=== PATIENT | female | born 1940 | race Caucasian/White ===

== ENCOUNTER 2018-08-17 10:05 | Inpatient (IN) ==
--- NOTE | 2018-08-17 10:36 | ED ---
HPI General Chief complaint: Arrhythmia / Palpitations Stated complaint: Cardiac complaint x 1 day Time Seen by Provider: 08/17/18 10:23 Source: patient Mode of arrival: ambulatory Limitations: no limitations History of Present Illness HPI narrative: 78yo F with PMH of afib (on eliquis, sotalol and dilitazem PRN), CHF here with c/o rapid heart rate since yesterday. Said she took her diltiazem yesterday but it didnt help. Did feel a little sob today. +Nausea. Denies any fever, chest pain, vomiting, abdominal pain, focal weakness or numbness. Related Data Home Medications Medication Instructions Recorded Confirmed apixaban [Eliquis] 2.5 mg PO BID 08/17/18 08/17/18 cholecalciferol (vitamin D3) 08/17/18 [Vitamin D3] colesevelam [WelChol] 1,875 mg PO BID 08/17/18 08/17/18 diltiazem HCl 90 mg PO DIRECTED 08/17/18 08/17/18 esomeprazole magnesium [Nexium] 40 mg PO DAILY 08/17/18 08/17/18 folic acid 2 mg PO DAILY 08/17/18 08/17/18 gabapentin 300 mg PO TID 08/17/18 08/17/18 glipizide 10 mg PO BID 08/17/18 08/17/18 mag [id number] rt xt 08/17/18 nebivolol [Bystolic] 10 mg PO DAILY 08/17/18 08/17/18 potassium chloride 20 meq PO QID 08/17/18 08/17/18 sitagliptin [Januvia] 100 mg PO DAILY 08/17/18 08/17/18 sotalol 120 mg PO BID 08/17/18 08/17/18 torsemide 20 mg PO TID 08/17/18 08/17/18 vitamins A,C,L-fzwi-hrnfdo 08/17/18 [PreserVision AREDS] Allergies Allergy/AdvReac Type Severity Reaction Status Date / Time epinephrine Allergy Severe Hives Verified 08/17/18 10:10 iodine Allergy Severe Hives Verified 08/17/18 10:10 shellfish derived Allergy Severe Hives Verified 08/17/18 10:10 Sulfa (Sulfonamide Allergy Severe Hives Verified 08/17/18 10:10 Antibiotics) morphine AdvReac Severe Hives Verified 08/17/18 10:10 Review of Systems ROS: all other systems reviewed are negative [facility] Medical History Medical History History of atrial fibrillation (Acute) History of macular degeneration (Acute) Hx of diabetes mellitus (Acute) Hx of hysterectomy (Acute) Surgical History Surgical History History of back surgery (Acute) History of bilateral knee replacement (Acute) Hx laparoscopic cholecystectomy (Acute) Hx of appendectomy (Acute) Hx of cataract extraction (Acute) Hx of tonsillectomy (Acute) Social History Social History Substance History: No History of Abuse Second Hand Smoke Exposure: No Smoking Status: Former smoker Tobacco Type: Cigarettes How Often Do You Have a Drink Containing Alcohol: 2 to 4 times a month Recent Travel in [facility] within the Last 8 Weeks: No Recent Out of Country Travel within the Last 8 Weeks: No Exam Narrative Exam Narrative: GENERAL: 78yo F in mild distress. SKIN: Focused skin assessment warm/dry. HEAD: Atraumatic. Normocephalic. EYES: Pupils equal and round. No scleral icterus. No injection or drainage. ENT: No nasal bleeding or discharge. Mucous membranes pink and moist. NECK: Trachea midline. No JVD. CARDIOVASCULAR: Regular rate and rhythm. No murmur appreciated. RESPIRATORY: No accessory muscle use. Clear to auscultation. Breath sounds equal bilaterally. GASTROINTESTINAL: Abdomen soft, non-tender, nondistended. MUSCULOSKELETAL: No obvious deformities. No clubbing. No cyanosis. +Bilateral lower extremity edema. NEUROLOGICAL: Awake and alert. No obvious cranial nerve deficits. Motor grossly within normal limits. Normal speech. PSYCHIATRIC: Appropriate mood and affect; insight and judgment normal. Course Initial Documented Vital Signs Temperature 97.6 F 08/17/18 10:18 Pulse Rate 120 H 08/17/18 10:18 Respiratory Rate 16 08/17/18 10:18 Blood Pressure 152/87 H 08/17/18 10:18 Pulse Oximetry 93 L 08/17/18 10:18 Last Documented Vital Signs Temperature 97.0 F L 08/18/18 12:00 Pulse Rate 60 08/18/18 12:00 Respiratory Rate 21 08/18/18 12:00 Blood Pressure 129/60 08/18/18 12:00 Pulse Oximetry 95 08/18/18 12:00 Critical Care Time Critical Care Time: Yes Total Critical Care Time: 40 Attestation: Aggregate critical care time was 40 minutes. Time to perform other separately billable procedures was not included in the critical care time. My time did not include minutes spent treating any other patients simultaneously or on activities that did not directly contribute to the patient's treatment. The services I provided to this patient were to treat and/or prevent clinically significant deterioration that could result in: Cardiovascular collapse or . I provided critical care services requiring my management, as noted below: Chart data review, documentation time, medication orders and management, vital sign assessments/reviewing monitor data, ordering and reviewing lab tests, ordering and interpreting/reviewing x-rays and diagnostic studies, care of the patient and discussion of the patient with the admitting physicians. Medical Decision Making MDM Narrative Medical decision making narrative: 78yo F here with afib RVR in the 120s. Pt also sob and O2 sat was 93% on RA so placed on 2L NC. Labs reviewed, no leukocytosis. H/H normal. BUN mildly elevated at 26. Troponin negative. BNP elevated at 491. CXR showed cardiomegaly with mild congestive failure. HR has been in the 80s since the IV cardizem so will give her usual dose of PO cardizem since she has not taken it today. I took pt off the oxygen and O2 sat drops to 89% on RA so placed her back to 2L NC where she is saturating at 96%. She does not use oxygen at home just CPAP at night for sleep. She takes torsemide and has normal creatinine so ordered 40mg IV lasix. Discussed with Dr. Sarabia and accepted to his service. Medical Screen Exam Complete: Yes Emergency Medical Condition: Yes Differential Diagnosis Differential Diagnosis: Afib RVR vs. CHF exacerbation vs. pneumonia vs. ACS Lab Data Result diagrams: 08/18/18 05:03 08/18/18 05:03 Lab Results 08/17/18 08/17/18 08/17/18 Range/Units 10:40 10:40 10:40 CBC w Diff Auto diff final WBC 7.2 (4.0-11.0) th/mm3 RBC 4.74 (4.00-5.30) mil/mm3 Hgb 14.3 (11.6-15.3) gm/dL Hct 43.2 (35.0-46.0) % MCV 91.2 (80.0-100.0) fL MCH 30.1 (27.0-34.0) pg MCHC 33.0 (32.0-36.0) % RDW 13.8 (11.6-17.2) % Plt Count 191 (150-450) th/mm3 MPV 9.4 (7.0-11.0) fL Neut % (Auto) 54.1 (16.0-70.0) % Lymph % (Auto) 32.1 (9.0-44.0) % [place] % (Auto) 9.8 H (0.0-8.0) % Eos % (Auto) 3.1 (0.0-4.0) % Baso % (Auto) 0.9 (0.0-2.0) % Neut # (Auto) 3.9 (1.8-7.7) th/mm3 Lymph # (Auto) 2.3 (1.0-4.8) th/mm3 [place] # (Auto) 0.7 (0.0-0.9) th/mm3 Eos # (Auto) 0.2 (0.0-0.4) th/mm3 Baso # (Auto) 0.1 (0.0-0.2) th/mm3 WBC Differential . Differential Comment . PT (9.8-11.6) sec INR Ratio APTT (23.4-31.7) sec Sodium 138 (136-145) meq/L Potassium 4.1 (3.5-5.1) meq/L Chloride 105 (98-107) meq/L Carbon Dioxide 29.0 (21.0-32.0) meq/L Anion Gap 4 L (5-15) meq/L BUN 26 H (7-18) mg/dL Creatinine 1.00 (0.50-1.00) mg/dL Estimated GFR 54 L (>89) mL/min POC Glucose (68-110) mg/dl Random Glucose 170 H (74-106) mg/dL Calcium 9.0 (8.5-10.1) mg/dL Total Bilirubin (0.2-1.0) mg/dL AST (15-37) U/L ALT (10-53) U/L Alkaline Phosphatase (45-117) U/L Total Creatine Kinase (26-192) U/L Troponin I Less than 0.02 L (0.02-0.05) ng/mL B-Natriuretic Peptide 491 H (0-100) pg/mL Total Protein (6.4-8.2) g/dL Albumin (3.4-5.0) g/dL 08/17/18 08/17/18 08/17/18 Range/Units 10:40 16:38 20:36 CBC w Diff WBC (4.0-11.0) th/mm3 RBC (4.00-5.30) mil/mm3 Hgb (11.6-15.3) gm/dL Hct (35.0-46.0) % MCV (80.0-100.0) fL MCH (27.0-34.0) pg MCHC (32.0-36.0) % RDW (11.6-17.2) % Plt Count (150-450) th/mm3 MPV (7.0-11.0) fL Neut % (Auto) (16.0-70.0) % Lymph % (Auto) (9.0-44.0) % [place] % (Auto) (0.0-8.0) % Eos % (Auto) (0.0-4.0) % Baso % (Auto) (0.0-2.0) % Neut # (Auto) (1.8-7.7) th/mm3 Lymph # (Auto) (1.0-4.8) th/mm3 [place] # (Auto) (0.0-0.9) th/mm3 Eos # (Auto) (0.0-0.4) th/mm3 Baso # (Auto) (0.0-0.2) th/mm3 WBC Differential Differential Comment PT 10.4 (9.8-11.6) sec INR 1.0 Ratio APTT 26.5 (23.4-31.7) sec Sodium (136-145) meq/L Potassium (3.5-5.1) meq/L Chloride (98-107) meq/L Carbon Dioxide (21.0-32.0) meq/L Anion Gap (5-15) meq/L BUN (7-18) mg/dL Creatinine (0.50-1.00) mg/dL Estimated GFR (>89) mL/min POC Glucose 119 (68-110) mg/dl Random Glucose (74-106) mg/dL Calcium (8.5-10.1) mg/dL Total Bilirubin (0.2-1.0) mg/dL AST (15-37) U/L ALT (10-53) U/L Alkaline Phosphatase (45-117) U/L Total Creatine Kinase 53 (26-192) U/L Troponin I Less than 0.02 L (0.02-0.05) ng/mL B-Natriuretic Peptide (0-100) pg/mL Total Protein (6.4-8.2) g/dL Albumin (3.4-5.0) g/dL 08/18/18 08/18/18 08/18/18 Range/Units 05:03 05:03 05:03 CBC w Diff Auto diff final WBC 7.8 (4.0-11.0) th/mm3 RBC 4.42 (4.00-5.30) mil/mm3 Hgb 13.4 (11.6-15.3) gm/dL Hct 40.6 (35.0-46.0) % MCV 91.9 (80.0-100.0) fL MCH 30.2 (27.0-34.0) pg MCHC 32.9 (32.0-36.0) % RDW 13.7 (11.6-17.2) % Plt Count 163 (150-450) th/mm3 MPV 9.9 (7.0-11.0) fL Neut % (Auto) 49.6 (16.0-70.0) % Lymph % (Auto) 35.0 (9.0-44.0) % [place] % (Auto) 12.1 H (0.0-8.0) % Eos % (Auto) 2.7 (0.0-4.0) % Baso % (Auto) 0.6 (0.0-2.0) % Neut # (Auto) 4.0 (1.8-7.7) th/mm3 Lymph # (Auto) 2.7 (1.0-4.8) th/mm3 [place] # (Auto) 0.9 (0.0-0.9) th/mm3 Eos # (Auto) 0.2 (0.0-0.4) th/mm3 Baso # (Auto) 0.0 (0.0-0.2) th/mm3 WBC Differential . Differential Comment . PT (9.8-11.6) sec INR Ratio APTT (23.4-31.7) sec Sodium 140 (136-145) meq/L Potassium 4.3 (3.5-5.1) meq/L Chloride 105 (98-107) meq/L Carbon Dioxide 31.5 (21.0-32.0) meq/L Anion Gap 4 L (5-15) meq/L BUN 26 H (7-18) mg/dL Creatinine 1.00 (0.50-1.00) mg/dL Estimated GFR 54 L (>89) mL/min POC Glucose (68-110) mg/dl Random Glucose 122 H (74-106) mg/dL Calcium 9.2 (8.5-10.1) mg/dL Total Bilirubin 0.6 (0.2-1.0) mg/dL AST 19 (15-37) U/L ALT 28 (10-53) U/L Alkaline Phosphatase 98 (45-117) U/L Total Creatine Kinase (26-192) U/L Troponin I (0.02-0.05) ng/mL B-Natriuretic Peptide 248 H (0-100) pg/mL Total Protein 7.3 (6.4-8.2) g/dL Albumin 3.5 (3.4-5.0) g/dL 08/18/18 08/18/18 Range/Units 07:37 10:51 CBC w Diff WBC (4.0-11.0) th/mm3 RBC (4.00-5.30) mil/mm3 Hgb (11.6-15.3) gm/dL Hct (35.0-46.0) % MCV (80.0-100.0) fL MCH (27.0-34.0) pg MCHC (32.0-36.0) % RDW (11.6-17.2) % Plt Count (150-450) th/mm3 MPV (7.0-11.0) fL Neut % (Auto) (16.0-70.0) % Lymph % (Auto) (9.0-44.0) % [place] % (Auto) (0.0-8.0) % Eos % (Auto) (0.0-4.0) % Baso % (Auto) (0.0-2.0) % Neut # (Auto) (1.8-7.7) th/mm3 Lymph # (Auto) (1.0-4.8) th/mm3 [place] # (Auto) (0.0-0.9) th/mm3 Eos # (Auto) (0.0-0.4) th/mm3 Baso # (Auto) (0.0-0.2) th/mm3 WBC Differential Differential Comment PT (9.8-11.6) sec INR Ratio APTT (23.4-31.7) sec Sodium (136-145) meq/L Potassium (3.5-5.1) meq/L Chloride (98-107) meq/L Carbon Dioxide (21.0-32.0) meq/L Anion Gap (5-15) meq/L BUN (7-18) mg/dL Creatinine (0.50-1.00) mg/dL Estimated GFR (>89) mL/min POC Glucose 153 133 (68-110) mg/dl Random Glucose (74-106) mg/dL Calcium (8.5-10.1) mg/dL Total Bilirubin (0.2-1.0) mg/dL AST (15-37) U/L ALT (10-53) U/L Alkaline Phosphatase (45-117) U/L Total Creatine Kinase (26-192) U/L Troponin I (0.02-0.05) ng/mL B-Natriuretic Peptide (0-100) pg/mL Total Protein (6.4-8.2) g/dL Albumin (3.4-5.0) g/dL Imaging Data Radiologist's impression: Chest X-Ray 08/17/18 10:31 CONCLUSION: Cardiomegaly with mild congestive failure ECG Data EKG Prior to Arrival: No Attestation: I personally reviewed and interpreted this ECG as follows: Interpretation: Afib at 117bpm. Normal axis. No significant ST elevation or depression. Discharge Plan Discharge Disposition Patient Disposition: ED Admit(ED Internal Use Only) Discharge Order Discharge Orders: Discharge Order (Routine); Ordered 08/18/18 Ordered By: Omer Sarabia ED Use Only Admit Order (Routine); Ordered 08/17/18 Ordered By: Kavita Darnell Discharge Details Diagnosis: CHF exacerbation Physicians Team ED Provider: Kavita Darnell Attending Provider: Omer Sarabia Status ED Status: Left Department Discharge Information Discharge Date/Time: 08/17/18 13:25
[2018-08-17 10:51] LABS: Baso # (Auto) 0.1 th/mm3 (0.0-0.2); Baso % (Auto) 0.9 % (0.0-2.0); Eos # (Auto) 0.2 th/mm3 (0.0-0.4); Eos % (Auto) 3.1 % (0.0-4.0); Hematocrit 43.2 % (35.0-46.0); Hemoglobin 14.3 gm/dL (11.6-15.3); Lymph # (Auto) 2.3 th/mm3 (1.0-4.8); Lymph % (Auto) 32.1 % (9.0-44.0); Mean Corpuscular Hemoglobin 30.1 pg (27.0-34.0); Mean Corpuscular Volume 91.2 fL (80.0-100.0); Mean Platelet Volume 9.4 fL (7.0-11.0); Mono # (Auto) 0.7 th/mm3 (0.0-0.9); Mono % (Auto) 9.8 % (0.0-8.0); Neut # (Auto) 3.9 th/mm3 (1.8-7.7); Neut % (Auto) 54.1 % (16.0-70.0); Platelet Count 191 th/mm3 (150-450); Red Blood Count 4.74 mil/mm3 (4.00-5.30); Red Cell Distribution Width 13.8 % (11.6-17.2); White Blood Count 7.2 th/mm3 (4.0-11.0)
[2018-08-17 11:03] LABS: Chloride 105 meq/L (98-107); Potassium 4.1 meq/L (3.5-5.1); Sodium 138 meq/L (136-145)
[2018-08-17 11:06] LABS: Anion Gap 4 meq/L (5-15); Blood Urea Nitrogen 26 mg/dL (7-18); Glucose,Random 170 mg/dL (74-106)
[2018-08-17 11:08] LABS: Activated Partial Thrombo Time 26.5 sec (23.4-31.7); Prothrombin Time 10.4 sec (9.8-11.6)
[2018-08-17 11:09] LABS: Glomerular Filtration Rate 54 mL/min (>89)
--- NOTE | 2018-08-17 11:24 | XR ---
EXAM DATE: 08/17/2018 10:51 AM EST AGE/SEX: 78 years / Female INDICATIONS: Short of breath. CLINICAL DATA: This is the patient's initial encounter. Patient reports that signs and symptoms have been present for 1 day and indicates a pain score of 0/10. MEDICAL/SURGICAL HISTORY: Diabetes mellitus type II. A-fib. Appendectomy. COMPARISON: No prior exams available for comparison. FINDINGS: The heart is enlarged. Mild interstitial edema is present. There is no evidence consolidation, pleura l effusion or pneumothorax. The portion of the bony skeleton visualized is unremarkable. CONCLUSION: Cardiomegaly with mild congestive failure Electronically signed by: Mj Polanco MD Board Certified Radiologist 08/17/2018 11:22 AM EST
[2018-08-17] MEDS ORDERED: Dextrose 50% in Water 50 ML Vial IV.PUSH PRN (14:21)
[2018-08-17] MEDS ORDERED: Acetaminophen 325 MG Tablet PO PRN (14:21)
--- NOTE | 2018-08-17 14:36 | P.HPIM ---
History of Present Illness Primary Care Physician: Tyree Meraz Chief Complaint: Heart palpitation, shortness of breath History of Present Illness: 78-year-old female with a past medical history of atrial fibrillation on chronic oral anticoagulation, CHF of unknown type initially presented to the ED for evaluation of symptomatic heart palpitation associated with shortness of breath. Patient states yesterday she noted increased heart rates which did not improve despite taking diltiazem as needed. But, decided to write this when out until this morning when patient continued to be short of breath along with heart palpitation. Patient also had nausea without any emesis. She then decided to come to the hospital for further evaluation. Patient states over the past several days she has had a dry cough, and noted worsening lower extremity swelling. In the ED patient had elevated BNP of 495. Initially when she presented she had A. fib with RVR for which she was given Cardizem with significant improvement. Chest x-ray revealed mild pulmonary congestion. She currently denies any chest pain. Inpatient Certification Inpatient Certification: I certify that the inpatient services were ordered in accordance with Medicare regulations governing the order. This includes certification that hospital inpatient services are reasonable and necessary and in the case of services not specified as inpatient-only under 42 CFR 419.22(n), that they are appropriately provided as inpatient services in accordance to with the 2-midnight benchmark under 43 CFR 412.3(e) Estimated Total Length of Stay (Days): 2 Plans for Post Hospital Care: Not yet determined Review of Systems Review of Systems: all other systems reviewed are negative [facility] Medical History Medical History History of atrial fibrillation (Acute) History of macular degeneration (Acute) Hx of diabetes mellitus (Acute) Hx of hysterectomy (Acute) Surgical History Surgical History History of back surgery (Acute) History of bilateral knee replacement (Acute) Hx laparoscopic cholecystectomy (Acute) Hx of appendectomy (Acute) Hx of cataract extraction (Acute) Hx of tonsillectomy (Acute) Social History Social History Substance History: No History of Abuse Second Hand Smoke Exposure: No Smoking Status: Former smoker Tobacco Type: Cigarettes How Often Do You Have a Drink Containing Alcohol: 2 to 4 times a month Recent Travel in [facility] within the Last 8 Weeks: No Recent Out of Country Travel within the Last 8 Weeks: No Immunization History Tetanus Immunization: Unsure Medications and Allergies Allergies Allergy/AdvReac Type Severity Reaction Status Date / Time epinephrine Allergy Severe Hives Verified 08/17/18 10:10 iodine Allergy Severe Hives Verified 08/17/18 10:10 shellfish derived Allergy Severe Hives Verified 08/17/18 10:10 Sulfa (Sulfonamide Allergy Severe Hives Verified 08/17/18 10:10 Antibiotics) morphine AdvReac Severe Hives Verified 08/17/18 10:10 Home Medications Medication Instructions Recorded Confirmed Type apixaban [Eliquis] 2.5 mg PO BID 08/17/18 08/17/18 History cholecalciferol (vitamin D3) 08/17/18 History [Vitamin D3] colesevelam [WelChol] 1,875 mg PO BID 08/17/18 08/17/18 History diltiazem HCl 90 mg PO DIRECTED 08/17/18 08/17/18 History esomeprazole magnesium [Nexium] 40 mg PO DAILY 08/17/18 08/17/18 History folic acid 2 mg PO DAILY 08/17/18 08/17/18 History gabapentin 300 mg PO TID 08/17/18 08/17/18 History glipizide 10 mg PO BID 08/17/18 08/17/18 History mag hroms-K7-aysjogza rt xt 08/17/18 History nebivolol [Bystolic] 10 mg PO DAILY 08/17/18 08/17/18 History potassium chloride 20 meq PO QID 08/17/18 08/17/18 History sitagliptin [Januvia] 100 mg PO DAILY 08/17/18 08/17/18 History sotalol 120 mg PO BID 08/17/18 08/17/18 History torsemide 20 mg PO TID 08/17/18 08/17/18 History vitamins A,C,K-mxqg-ihsqml 08/17/18 History [PreserVision AREDS] Active Medications: Active Medications Acetaminophen (Tylenol) 650 mg PO Q4H PRN PRN Reason: Temp > 100.4 Al Hydroxide/Mg Hydroxide (Milk Of Magnesia Liq) 30 ml PO Q12H PRN PRN Reason: Mild Constipation Dextrose (D50w Vial) 50 ml IV.PUSH UNSCH PRN PRN Reason: PER HYPOGLYCEMIA PROTOCOL Glucagon (Glucagon Inj) 1 mg OTHER PRN PRN PRN Reason: for Hypoglycemia Protocol Insulin Aspart (Novolog Insulin Correctional Sugar Inj) 0 unit SQ ACHS VIDHYA; Protocol Ondansetron HCl (Zofran Inj) 4 mg IV.PUSH Q6H PRN PRN Reason: NAUSEA OR VOMITING Sodium Chloride (Ns Flush) 2 ml IV.FLUSH BID VIDHYA Sodium Chloride (Ns Flush) 2 ml IV.FLUSH PRN PRN PRN Reason: FLUSH AFTER USING IV ACCESS Physical Exam Vital signs: Vital Signs 08/17/18 10:18 08/17/18 10:55 08/17/18 11:05 Temperature 97.6 F Pulse Rate 120 H 69 78 Respiratory Rate 16 20 20 Blood Pressure 152/87 H 111/60 112/64 Pulse Oximetry 93 L 96 2 L 08/17/18 11:47 08/17/18 12:20 08/17/18 13:00 Temperature 97.1 F L Pulse Rate 73 104 H Respiratory Rate 20 20 Blood Pressure 136/55 L 120/81 Pulse Oximetry 96 89 L 93 L 08/17/18 13:02 Temperature Pulse Rate 70 Respiratory Rate 20 Blood Pressure 109/53 L Pulse Oximetry 95 Intake & Output 08/16/18 08/17/18 08/17/18 18:59 06:59 18:59 Weight 116 kg Narrative: GENERAL: NAD SKIN: Warm and dry. HEAD: Atraumatic. Normocephalic. EYES: Pupils equal and round. No scleral icterus. No injection or drainage. ENT: No nasal bleeding or discharge. Mucous membranes pink and moist. NECK: Trachea midline. No JVD. CARDIOVASCULAR: Irregular regular rate and rhythm. RESPIRATORY: No accessory muscle use. Clear to auscultation. Breath sounds equal bilaterally. GASTROINTESTINAL: Abdomen soft, non-tender, nondistended. Hepatic and splenic margins not palpable. MUSCULOSKELETAL: Extremities without clubbing, cyanosis, or edema. No obvious deformities. NEUROLOGICAL: Awake and alert. No obvious cranial nerve deficits. Motor grossly within normal limits. Five out of 5 muscle strength in the arms and legs. Normal speech. PSYCHIATRIC: Appropriate mood and affect; insight and judgment normal. Results Labs CBC & Chem 7: 08/17/18 10:40 08/17/18 10:40 Imaging Impressions Chest X-Ray 08/17/18 10:31 CONCLUSION: Cardiomegaly with mild congestive failure Caprini VTE Risk Assessment Caprini VTE Risk Assessment: Moderate/High Risk (score >= 2) Caprini Risk Assessment Model: Point Value = 1 Point Value = 2 Point Value = 3 Point Value = 5 Age 41-60 Minor surgery BMI > 25 kg/m2 Swollen legs Varicose veins or History of unexplained or recurrent spontaneous Oral contraceptives or hormone replacement Sepsis (< 1 month) Serious lung disease, including pneumonia (< 1 month) Abnormal pulmonary function Acute myocardial infarction Congestive heart failure (< 1 month) History of inflammatory bowel disease Medical patient at bed rest Age 61-74 Arthroscopic surgery Major open surgery (> 45 min) Laparoscopic surgery (> 45 min) Malignancy Confined to bed (> 72 hours) Immobilizing plaster cast Central venous access Age >= 75 History of VTE Family history of VTE Factor V Leiden Prothrombin [id number] Lupus anticoagulant Anticardiolipin antibodies Elevated serum homocysteine Heparin-induced thrombocytopenia Other congenital or acquired thrombophilia Stroke (< 1 month) Elective arthroplasty Hip, pelvis, or leg fracture Acute spinal cord injury (< 1 month) Prophylaxis Regimen: Total Risk Factor Score Risk Level Prophylaxis Regimen 0-1 Low Early ambulation 2 Moderate Order ONE of the following: *Sequential Compression Device (SCD) *Heparin 5000 units SQ BID 3-4 Higher Order ONE of the following medications: *Heparin 5000 units SQ TID *Enoxaparin/Lovenox 40 mg SQ daily (WT < 150 kg, CrCl > 30 mL/min) *Enoxaparin/Lovenox 30 mg SQ daily (WT < 150 kg, CrCl > 10-29 mL/min) *Enoxaparin/Lovenox 30 mg SQ BID (WT < 150 kg, CrCl > 30 mL/min) AND/OR *Sequential Compression Device (SCD) 5 or more Highest Order ONE of the following medications: *Heparin 5000 units SQ TID (Preferred with Epidurals) *Enoxaparin/Lovenox 40 mg SQ daily (WT < 150 kg, CrCl > 30 mL/min) *Enoxaparin/Lovenox 30 mg SQ daily (WT < 150 kg, CrCl > 10-29 mL/min) *Enoxaparin/Lovenox 30 mg SQ BID (WT < 150 kg, CrCl > 30 mL/min) AND *Sequential Compression Device (SCD) Assessment and Plan Plan 78-year-old female with Acute on chronic CHF exacerbation of unknown type Noted and reviewed by me with finding of cardiomegaly with mild congestive failure BNP elevated of 400 + Initial cardiac enzyme and EKG unremarkable, however will trend Patient on torsemide 20 mg at home however received Lasix 40 mg IV x1 Continue with Lasix 40 mg IV every 12 hours Resume beta-christie Check 2D echo History of paroxysmal A. fib Initially presented with A. fib with RVR however resolved status post Cardizem IV x1 Resume sotalol, Bystolic and Eliquis Telemetry monitoring History of diabetes type 2 Hold oral antihyperglycemic agent, start insulin sliding scale with fingerstick blood glucose monitoring Check hemoglobin A1c History of hyperlipidemia, hypertension and other chronic medical conditions Resume outpatient medications DVT prophylaxis: Eliquis H&P: Quality VTE Deep Vein Thrombosis/Pulmonary Embolism Present on Admission: No
[2018-08-17] MEDS ORDERED: DILTIAZEM HCL 90 MG PO SCH (14:45)
[2018-08-17] MEDS: Insulin NovoLOG Aspart Correctional Sugar Inj SQ SCH ×2 (16:46→21:20)
[2018-08-17 17:11] LABS: Creatine Kinase 53 U/L (26-192)
[2018-08-17] MEDS: Gabapentin 300 MG Capsule PO SCH (18:32)
--- NOTE | 2018-08-17 19:50 | ECG ---
Date Performed: 08/17/2018 Time Performed: 16:38:14 PTAGE: 78 years EKG: SINUS BRADYCARDIA WITH OCCASIONAL SUPRAVENTRICULAR PREMATURE COMPLEXES BORDERLINE ECG Christopher red to PREVIOUS TRACING , now back in Sinus rhythm PREVIOUS TRACIN08/17/2018 10.20 DOCTOR: Sabi Hunter Interpretating Date/Time 08/17/2018 19:48:50
--- NOTE | 2018-08-17 22:15 | ECG ---
Date Performed: 08/17/2018 Time Performed: 10:20:36 PTAGE: 78 years EKG: ATRIAL FIBRILLATION WITH RAPID VENTRICULAR RESPONSE ABNORMAL RHYTHM ECG NO PREVIOUS TRACING DOCTOR: Danish Hernandez Interpretating Date/Time 08/17/2018 22:13:59
[2018-08-18 06:34] LABS: Chloride 105 meq/L (98-107); Potassium 4.3 meq/L (3.5-5.1); Sodium 140 meq/L (136-145)
[2018-08-18 06:36] LABS: Baso % (Auto) 0.6 % (0.0-2.0); Eos # (Auto) 0.2 th/mm3 (0.0-0.4); Eos % (Auto) 2.7 % (0.0-4.0); Hematocrit 40.6 % (35.0-46.0); Hemoglobin 13.4 gm/dL (11.6-15.3); Lymph # (Auto) 2.7 th/mm3 (1.0-4.8); Mean Corpuscular HGB Conc 32.9 % (32.0-36.0); Mean Corpuscular Hemoglobin 30.2 pg (27.0-34.0); Mean Corpuscular Volume 91.9 fL (80.0-100.0); Mean Platelet Volume 9.9 fL (7.0-11.0); Mono # (Auto) 0.9 th/mm3 (0.0-0.9); Mono % (Auto) 12.1 % (0.0-8.0); Neut % (Auto) 49.6 % (16.0-70.0); Platelet Count 163 th/mm3 (150-450); Red Blood Count 4.42 mil/mm3 (4.00-5.30); Red Cell Distribution Width 13.7 % (11.6-17.2); White Blood Count 7.8 th/mm3 (4.0-11.0)
[2018-08-18 06:37] LABS: Calcium 9.2 mg/dL (8.5-10.1)
[2018-08-18 06:38] LABS: Albumin 3.5 g/dL (3.4-5.0); Anion Gap 4 meq/L (5-15); Blood Urea Nitrogen 26 mg/dL (7-18); Carbon Dioxide 31.5 meq/L (21.0-32.0); Glucose,Random 122 mg/dL (74-106)
[2018-08-18 06:41] LABS: Alanine Aminotransferase 28 U/L (10-53); Aspartate Aminotransferase 19 U/L (15-37); Glomerular Filtration Rate 54 mL/min (>89)
[2018-08-18 06:43] LABS: Total Protein 7.3 g/dL (6.4-8.2)
[2018-08-18 06:44] LABS: Alkaline Phosphatase 98 U/L (45-117)
[2018-08-18] MEDS: Insulin NovoLOG Aspart Correctional Sugar Inj SQ SCH ×2 (09:29→12:32)
[2018-08-18] MEDS: Gabapentin 300 MG Capsule PO SCH (09:30)
--- NOTE | 2018-08-18 10:33 | P.PNIM ---
Subjective Interval history: Follow-up acute on chronic CHF exacerbation/atrial fibrillation RVR August 18, 2018patient seen and examined, reports significant improvement of shortness of breath. Denies any chest pain, heart palpitation. Looking forward going home today. Physical Exam Vital signs: Vital Signs 08/17/18 10:55 08/17/18 11:05 08/17/18 11:47 Temperature Pulse Rate 69 78 73 Respiratory Rate 20 20 20 Blood Pressure 111/60 112/64 136/55 L Pulse Oximetry 96 2 L 96 08/17/18 12:20 08/17/18 13:00 08/17/18 13:02 Temperature 97.1 F L Pulse Rate 104 H 70 Respiratory Rate 20 20 Blood Pressure 120/81 109/53 L Pulse Oximetry 89 L 93 L 95 08/17/18 16:00 08/17/18 20:00 08/18/18 00:00 Temperature 97 F L 97.7 F 97.7 F Pulse Rate 51 L 63 61 Respiratory Rate 20 20 20 Blood Pressure 121/56 L 131/61 128/58 L Pulse Oximetry 97 97 95 08/18/18 04:00 08/18/18 08:00 Temperature 97 F L 97.6 F Pulse Rate 62 78 Respiratory Rate 20 18 Blood Pressure 124/58 L 145/66 H Pulse Oximetry 95 97 Intake & Output 08/17/18 08/18/18 08/18/18 18:59 06:59 18:59 Intake Total 240 / 240 480 / 480 Output Total 400 / 400 Balance 240 / 240 80 / 80 Weight 116 kg 115.7 kg Intake: Oral 240 / 240 480 / 480 Output: Urine 400 / 400 Other: # Voids 3 1 Date of Last Bowel Movement 08/17/18 # Bowel Movements 3 Narrative: GENERAL: NAD SKIN: Warm and dry. HEAD: Atraumatic. Normocephalic. EYES: Pupils equal and round. No scleral icterus. No injection or drainage. ENT: No nasal bleeding or discharge. Mucous membranes pink and moist. NECK: Trachea midline. No JVD. CARDIOVASCULAR: Irregular regular rate and rhythm. RESPIRATORY: No accessory muscle use. Clear to auscultation. Breath sounds equal bilaterally. GASTROINTESTINAL: Abdomen soft, non-tender, nondistended. Hepatic and splenic margins not palpable. MUSCULOSKELETAL: Extremities without clubbing, cyanosis, or edema. No obvious deformities. NEUROLOGICAL: Awake and alert. No obvious cranial nerve deficits. Motor grossly within normal limits. Five out of 5 muscle strength in the arms and legs. Normal speech. PSYCHIATRIC: Appropriate mood and affect; insight and judgment normal. Results Labs CBC & Chem 7: 08/18/18 05:03 08/18/18 05:03 Imaging Imaging: Impressions Chest X-Ray 08/17/18 10:31 CONCLUSION: Cardiomegaly with mild congestive failure Assessment and Plan Plan 78-year-old female with Acute on chronic CHF exacerbation of unknown type-resolved Noted and reviewed by me with finding of cardiomegaly with mild congestive failure BNP elevated of 400 + Initial cardiac enzyme and EKG unremarkable, however will trend Patient on torsemide 20 mg at home however received Lasix 40 mg IV x1 Continue with Lasix 40 mg IV every 12 hours, patient will resume torsemide today Continue beta-christie 2D echo pending History of paroxysmal A. fib Initially presented with A. fib with RVR however resolved status post Cardizem IV x1 Continue sotalol, Bystolic and Eliquis Telemetry monitoring History of diabetes type 2 Hold oral antihyperglycemic agent, start insulin sliding scale with fingerstick blood glucose monitoring hemoglobin A1c pending History of hyperlipidemia, hypertension and other chronic medical conditions Continue outpatient medications DVT prophylaxis: Quinn Patient's condition tremendously improved since admission, therefore she will be discharged home. Discharge patient to home Condition on discharge: Improved Regular Diet as tolerated Ad Ellen activity Rx written: None Follow-up with primary care physician Progress Note: Quality VTE Deep Vein Thrombosis/Pulmonary Embolism Present on Admission: No
[2018-08-18 12:08] VITALS: BP 129/60; PULSE 60; RESP 21; TEMP 97; O2SAT 95
--- NOTE | 2018-08-18 14:03 | ECHRPT ---
Indication: HEART FAILURE CONCLUSIONS Normal left ventricular size. Wall thickness is normal. The left ventricular systolic function is normal with an estimated ejection fraction in the range of 55-60%. Mild aortic valve stenosis. There is trace tricuspid valve regurgitation. The estimated pulmonary arterial pressure is 28 mmHg. BP: / HR: Rhythm: Sinus, PACs MEASUREMENTS (Male / Female) Normal Values Technical Quality:Fair 2D ECHO LV Diastolic Diameter PLAX 4.6 cm 4.2 - 5.9 / 3.9 - 5.3 cm LV Systolic Diameter PLAX 3.5 cm IVS Diastolic Thickness 1.0 cm 0.6 - 1.0 / 0.6 - 0.9 cm LVPW Diastolic Thickness 1.0 cm 0.6 - 1.0 / 0.6 - 0.9 cm LV Relative Wall Thickness 0.4 RV Internal Dim ED PLAX 3.4 cm LVOT Diameter 1.8 cm Aortic Root Diameter 2.9 cm LA Systolic Diameter LX 3.6 cm 3.0 - 4.0 / 2.7 - 3.8 cm DOPPLER AV Peak Velocity 200.5 cm/s AV Peak Gradient 16.1 mmHg LVOT Peak Velocity 90.2 cm/s LVOT Peak Gradient 3.3 mmHg AV Area Cont Eq pk 1.1 cm Mitral E Point Velocity 143.0 cm/s Mitral A Point Velocity 108.0 cm/s Mitral E to A Ratio 1.3 TR Peak Velocity 209.0 cm/s TR Peak Gradient 17.5 mmHg Right Atrial Pressure 10.0 mmHg Pulmonary Artery Systolic Pressu 27.5 mmHg Right Ventricular Systolic Press 27.5 mmHg PV Peak Velocity 113.0 cm/s PV Peak Gradient 5.1 mmHg FINDINGS LEFT VENTRICLE Normal left ventricular size. Wall thickness is normal. The left ventricular systolic function is normal with an estimated ejection fraction in the range of 55-60%. RIGHT VENTRICLE Normal right ventricular size and systolic function. LEFT ATRIUM The left atrial size is normal. RIGHT ATRIUM The right atrial size is normal. ATRIAL SEPTUM Normal atrial septal thickness without atrial level shunting by limited color doppler interrogation. AORTA The aortic root and proximal ascending aorta are normal in size on limited imaging. MITRAL VALVE Structurally normal mitral valve. No mitral valve stenosis or regurgitation. AORTIC VALVE Mild aortic valve stenosis. TRICUSPID VALVE There is trace tricuspid valve regurgitation. The estimated pulmonary arterial pressure is 28 mmHg. PULMONARY VALVE No pulmonary valve regurgitation or stenosis. VESSELS The inferior vena cava is normal in size. PERICARDIUM No pericardial effusion. Noah Minor MD, FACC (Electronically Signed) Final Date:18 August 2018 14:02
[2018-08-18 15:59] LABS: Hemoglobin A1c 6.9 % (4.3-6.0)
== END 2018-08-18 13:00 | disposition home or self-care (01) | DRG 293 ==
LOC: PHED 10:05 → PHEDA 12:29 → PH3 13:38
PROVIDERS: ADMIT Hospitalist; ATTEND Hospitalist
CPT/HCPCS: 71010; 71045; 80048; 80053; 82550; 82948; 82962; 83036; 83520; 83880; 84484; 85025; 85610; 85730; 93005; 93306; J1815; J1940; J2405